=== PATIENT | male | born 1970 | race Caucasian/White ===

== ENCOUNTER 2020-07-05 01:05 | Emergency (ER) | payer OTHER, BC ==
[~2020-07-05] VITALS: Ht 172.7 cm; Wt 106.8 kg
[2020-07-05 01:18] VITALS: Ht 172.7 cm; Wt 106.8 kg
[2020-07-05 04:22] LABS: BASOPHIL % 0.5 % (0.2-1.5); PLATELET COUNT 288 x10^3mcL (152-348); RED CELL DISTRIBUTION WIDTH 13.3 % (12.1-16.2)
[2020-07-05 04:30] LABS: rbc morphology (normal/abnorm) NORMAL (NORMAL)
[2020-07-05 04:44] LABS: CALCIUM 8.4 mg/dL (8.5-10.1); CARBON DIOXIDE 24.8 mmol/L (21-32); CHLORIDE SERUM 104 mmol/L (98-107); GFR1 > 60 mL/min; GLUCOSE SERUM 111 mg/dL (74-106); POTASSIUM SERUM 3.7 mmol/L (3.5-5.1); SODIUM SERUM 140 mmol/L (136-145)
[2020-07-05 05:03] LABS: ALBUMIN 3.7 g/dL (3.4-5.0); ALKALINE PHOSPHATASE 79 U/L (46-116); ALT/SGPT 42 U/L (16-63); AST/SGOT 3 U/L (15-37); BILIRUBIN TOTAL 0.3 mg/dL (0.20-1.00); T4(THYROXINE) 6.1 ug/dL (4.7-13.3); TOTAL PROTEIN, SERUM 7.2 g/dL (6.4-8.2)
[2020-07-05 05:31] VITALS: BP 143/94
== END 2020-07-05 05:31 | disposition home or self-care (01) ==
LOC: ED 01:05
PROVIDERS: Emergency Medicine
DX: R07.89 Other chest pain (principal); I10 Essential (primary) hypertension